=== PATIENT | female | born 1960 | race Caucasian/White ===

== ENCOUNTER → 2016-06-24 | Outpatient (CLI) | payer MEDICAID | LOC: CIMAGING 08:47 | PROVIDERS: ATTEND Internal Medicine | DX: M17.12 Unilateral primary osteoarthritis, left knee (principal); M25.561 Pain in right knee | CPT/HCPCS: 73562-PO; 73565-PO ==

== ENCOUNTER → 2017-06-16 | Outpatient (CLI) | payer MEDICAID | LOC: CIMAGING 15:02 | PROVIDERS: ATTEND Internal Medicine | DX: M18.0 Bilateral primary osteoarthritis of first carpometacarpal joints (principal); M85.432 Solitary bone cyst, left ulna and radius; M20.092 Other deformity of left finger(s) | CPT/HCPCS: 73120-PO ==

== ENCOUNTER → 2017-07-29 | Outpatient (CLI) | payer MEDICAID | LOC: CIMAGING 14:54 | PROVIDERS: ATTEND Internal Medicine Rheumatology | DX: M77.32 Calcaneal spur, left foot (principal); M77.31 Calcaneal spur, right foot | CPT/HCPCS: 73620-PO ==

== ENCOUNTER → 2018-03-02 | Outpatient (CLI) | payer MEDICAID | LOC: FIMAGING 07:41 | PROVIDERS: ATTEND Internal Medicine | DX: M22.42 Chondromalacia patellae, left knee (principal); M23.42 Loose body in knee, left knee; M25.462 Effusion, left knee; M71.22 Synovial cyst of popliteal space [Baker], left knee ==

== ENCOUNTER → 2018-07-26 | Outpatient (CLI) | payer MEDICAID | LOC: CIMAGING 08:35 | PROVIDERS: ATTEND Internal Medicine | DX: M19.071 Primary osteoarthritis, right ankle and foot (principal); M77.51 Other enthesopathy of right foot and ankle; M06.9 Rheumatoid arthritis, unspecified | CPT/HCPCS: 36415-PO; 73610-PO ==

== ENCOUNTER → 2018-08-18 | Outpatient (CLI) | payer MEDICAID | LOC: FIMAGING 06:34 | PROVIDERS: ATTEND Internal Medicine | DX: M76.71 Peroneal tendinitis, right leg (principal); M76.821 Posterior tibial tendinitis, right leg; M72.2 Plantar fascial fibromatosis; S93.491D Sprain of other ligament of right ankle, subsequent encounter; M25.571 Pain in right ankle and joints of right foot; E03.9 Hypothyroidism, unspecified ==